=== PATIENT | female | born 1965 | race Caucasian/White ===

== ENCOUNTER 2024-12-30 11:34 | Outpatient (OUT) | payer OTHER, SELFPAY ==
--- NOTE | 2024-12-30 11:36 | XR_ITS ---
The [address] [address] Patient Name: MANN IQBAL MRN: [id number] date: 1965 Sex: F Assigned Patient Location: [facility] Current Patient Location: [facility] Accession/Order Number: [id number] Exam Date: 12/30/2024 11:38 Report Date: 12/30/2024 13:31 At the request of: NATALY MIRAMONTES DO Procedure: XR hand LT 2V LEFT HAND - 2 views CLINICAL DATA: pain at the fifth finger. Follow-up fracture. COMPARISON: 04/07/2025 AP and lateral views were obtained in a splint which obscures fine bone detail. There is osteopenia. There is redemonstration of a fracture at the proximal metaphysis of the proximal talus and the fifth finger. There is no significant change in alignment. No other obvious acute fractures are identified. No dislocation is seen. There are degenerative changes. XR/XR hand LT 2V IMPRESSION: STABLE FRACTURE AT THE PROXIMAL PHALANX OF THE FIFTH FINGER Impression dictated by: Vianey Sanchez M.D. 12/30/2024 1:31 PM Dictation Location: [place] [address] Electronically authenticated by: [id number] Y Date: 12/30/2024 13:31
== END 2024-12-30 11:35 | disposition home or self-care (01) ==
LOC: RAD 11:34
PROVIDERS: Visit Provider Physician Assistant
DX: M79.642 Pain in left hand (principal); S62.647D Nondisplaced fracture of proximal phalanx of left little finger, subsequent encounter for fracture with routine healing
CPT/HCPCS: 73120

== ENCOUNTER 2025-02-10 09:31 | Outpatient (OUT) | payer OTHER, SELFPAY ==
--- NOTE | 2025-02-10 | XR_ITS ---
The [address] [address] Patient Name: MANN IQBAL MRN: [id number] date: 1965 Sex: F Assigned Patient Location: [facility] Current Patient Location: [facility] Accession/Order Number: [id number] Exam Date: 02/10/2025 09:45 Report Date: 02/10/2025 10:06 At the request of: NATALY MIRAMONTES DO Procedure: XR hand LT min 3V LEFT HAND - 3 views CLINICAL DATA: Follow-up fracture the fifth finger COMPARISON: 12/30/2024 and 12/26/2024 AP, lateral and oblique views were obtained. The splint has been removed. The bony structures are osteopenic. The fracture at the base of the proximal phalanx of the fifth finger is unchanged in alignment and there is interval healing. There is no new fracture or dislocation. There are degenerative changes with narrowing of the interphalangeal joints and hypertrophy, greatest at the distal fifth finger. There is also degenerative change at the first carpal metacarpal joint. There are no significant soft tissue abnormalities. XR/XR hand LT min 3V IMPRESSION: STABLE HEALING FRACTURE AT THE BASE OF THE PROXIMAL PHALANX OF THE FIFTH FINGER. OSTEOPENIA AND DEGENERATIVE CHANGES. Impression dictated by: Vianey Sanchez M.D. 02/10/2025 10:06 AM Dictation Location: [place] [address] Electronically authenticated by: [id number] Y Date: 02/10/2025 10:06
== END 2025-02-10 09:32 | disposition home or self-care (01) ==
LOC: RAD 09:31
PROVIDERS: Visit Provider Physician Assistant
DX: S62.617D Displaced fracture of proximal phalanx of left little finger, subsequent encounter for fracture with routine healing (principal); M85.88 Other specified disorders of bone density and structure, other site
CPT/HCPCS: 73130